=== PATIENT | female | born 1940 | race Caucasian/White ===

== ENCOUNTER 2016-12-02 08:21 | Day surgery (SDC) | payer MEDICARE, OTHER ==
--- NOTE | ~2016-12-02 | EGD ---
EGD REPORT [facility] [address] [id number] NAME: KARIS LIMA : 36 STATUS : REG [facility] [place] PAT#: [id number] AGE: 76 ADM/REG DATE : 12/02/16 MR#: [id number] REPORT SERV DATE: 12/02/16 DICTATED BY: WENCESLAO TORO DATE: 12/02/16 REPORT STATUS : Draft TRANSCRIBED BY: [employer] DATE: 12/02/16 [facility] Patient Name: Karis Lima Date of : 1940 Attending MD: WENCESLAO TORO MD Procedure Date No Time: 12/02/2016 Procedure: Colonoscopy Indications: FH of Colonic Polyps - 1st degree relative, Constipation Referring MD: LEI PALENCIA Medicines: as per anesthesia Complications: No immediate complications. Procedure: Pre-Anesthesia Assessment: - ASA Grade Assessment: III - A patient with severe systemic disease. After I obtained informed consent, the scope was passed under direct vision. Throughout the procedure, the patient's blood pressure, pulse, and oxygen saturations were monitored continuously. The PCF [id number] was introduced through the anus and advanced to the cecum, identified by appendiceal orifice and ileocecal valve. The colonoscopy was performed without difficulty. The patient tolerated the procedure. The quality of the bowel preparation was fair. Findings: The perianal and digital rectal examinations were normal. A few small and large-mouthed diverticula were found in the sigmoid colon. Internal hemorrhoids were found during endoscopy and were mild. Impression: - Diverticulosis in the sigmoid colon. - Internal hemorrhoids. Recommendation: - Continue present medications. Procedure Code(s): --- Professional --- 48520, Colonoscopy, flexible, proximal to splenic flexure; diagnostic, with or without collection of specimen(s) by brushing or washing, with or without colon decompression (separate procedure) Diagnosis Code(s): --- Professional --- K64.8, Other hemorrhoids K57.30, Diverticulosis of large intestine without perforation or abscess without bleeding EGD REPORT [facility] [address] [id number] NAME: KARIS LIMA : [birth year] STATUS : REG [facility] [place] PAT#: [id number] AGE: 76 ADM/REG DATE : 12/02/16 MR#: [id number] REPORT SERV DATE: 12/02/16 DICTATED BY: WENCESLAO TORO. DATE: 12/02/16 REPORT STATUS : Draft TRANSCRIBED BY: [employer] DATE: 12/02/16 Z83.71, Family history of colonic polyps K59.00, Constipation, unspecified CPT copyright 2013 [employer]. All rights reserved. The codes documented in this report are preliminary and upon commercial representative review may be revised to meet current compliance requirements. WENCESLAO TORO MD 12/02/2016 10:31 AM This report has been signed electronically. Number of Addenda: 0 Note Initiated On: 12/02/2016 9:56 AM Scope Withdrawal Time 0 hours 8 minutes 35 seconds [id number] [id number]
[~2016-12-02 08:21] MED LIST: ACET500CAP PO; ADVIL PO; LIPITOR10 PO; LOTE20 PO; NORV10 PO; PREM.3B PO; VITAMIN D31000 UNIT PO
== END 2016-12-02 23:59 | disposition home or self-care (01) ==
LOC: DMU 08:21
PROVIDERS: Internal Medicine Gastroenterology
PROC: 0DJD8ZZ Inspection of Lower Intestinal Tract, Via Natural or Artificial Opening Endoscopic (ICD-10-PCS; principal; 2016-12-02 09:30)
DX: K64.8 Other hemorrhoids (principal); K57.30 Diverticulosis of large intestine without perforation or abscess without bleeding; K59.00 Constipation, unspecified; I10 Essential (primary) hypertension; I48.91 Unspecified atrial fibrillation; E78.5 Hyperlipidemia, unspecified; Z88.5 Allergy status to narcotic agent; Z83.71 Family history of colonic polyps